=== PATIENT | male | born 1960 | race American Indian/Alaskan Native ===

== ENCOUNTER 2017-10-09 17:50 | Inpatient (IN) | payer BC, OTHER ==
[~2017-10-09] VITALS: Ht 180.3 cm; Wt 81.3 kg
[~2017-10-09 17:50] MED LIST: ADULT LOW DOSE81 MG PO; CLONAZEPAM1 MG PO; FEROSUL325 MG PO; HYDROCHLOROTH12.5 M1 PO; LOPERAMIDE2 MG PO; METOPROLOL SUCC25 MG PO; NICOTINE PATCH1 EACH TD; OMEPRAZOLE20 MG PO; PRINIVIL20 MG PO; PRINIVIL5 MG PO; VITAMIN B-1100 M1 PO; VITAMIN C500 M1 PO; VITAMIN D2000 UNI1 PO
[2017-10-09] MEDS ORDERED: MAG-OXIDE400 MG PO (18:29)
--- NOTE | 2017-10-09 21:45 | NUR ---
PATIENT RESTING IN BED, BREATHING IS EVEN AND UNLABORED. DENIES CURRENT NEEDS AT THIS TIME. ASSESSMENT DONE. CALL LIGHT WITHIN REACH.
--- NOTE | 2017-10-09 23:11 | NUR ---
PT BACK TO BED FROM THE BATHROOM. STOL SAMPLE COLLECTED AND SENT TO LAB. VS AND I&O'S TAKEN AND DOCUMENTED. WILL INFORM RN OF PT BM. PT STATES NO NEEDS AT THIS TIME. INFORMED PT TO CALL IF HE THINKS OF ANYTHING HE NEEDS. CALL LIGHT IS IN REACH.
--- NOTE | 2017-10-09 23:22 | NUR ---
PT GIVEN WARM BLANKET. PT HAS NO OTHER NEEDS AT THIS TIME. CALL LIGHT IS IN REACH.
--- NOTE | 2017-10-10 01:00 | NUR ---
PATIENT RESTING IN BED, BREATHING IS EVEN AND UNLABORED. DENIES NEEDS AT THIS TIME. ASSESSMENT DONE. CALL LIGHT WITHIN REACH.
--- NOTE | 2017-10-10 03:00 | NUR ---
PATIENT ASSISTED TO BATHROOM WITH 1PA, GAIT WEAK BUT STEADY. NOW RESTING IN BED COMFORTABLY, BREATHING IS EVEN AND UNLABORED. PATIENT DENIES FURTHER NEEDS. CALL LIGHT WITHIN REACH.
--- NOTE | 2017-10-10 04:45 | NUR ---
UPDATED DR. URRUTIA REGARDING PATIENT'S LAB VALUES, CRITICAL SODIUM VALUE OF 115, POTASSIUM OF 3.5. IV FLUIDS DC'D, X1 DOSE OF 40 MEQ PO POTASSIUM ODERED WITH 500 CC FREE WATER TO BE DRANK BEFORE NEXT LAB YOSSI.
--- NOTE | 2017-10-10 05:00 | NUR ---
PATIENT RESTING IN BED, BREATHING IS EVEN AND UNLABORED. DENIES CURRENT NEEDS. CALL LIGHT WITHIN REACH.
--- NOTE | 2017-10-10 06:30 | NUR ---
PATIENT ASSISTED TO BATHROOM WITH 1PA. GAIT APPEARS TO BE IMPROVED FROM EARLIER IN SHIFT, CONTINUES TO NEED ASSISTANCE. PATIENT NOW RESTING IN BED, BREATHING IS EVEN AND UNLABORED. DENIES FURTHER NEEDS. CALL LIGHT WITHIN REACH.
--- NOTE | 2017-10-10 08:29 | NUR ---
IV SITE INTACT, NO SWELLING OR REDNESS NOTED AT SITE, PT DENIES PAIN WITH FLUSH. ABLE TO DRAW A LAB SAMPLE OFF IV SITE. PT ASHLEY WELL. PT IS ALERT AND ORIENTED X4, COOPERATIVE. PT DENIES PAIN, NAUSEA, AND SOB AT THIS TIME. PT DECLINES SMOKING CESATION INFORMATION OR COUNSELING. PT VITALS WNL, HR STILL VARIABLE. SKIN IS INTACT. PT HAS ORDERED BREAKFAST. EARPLUGS SUPPLIED TO PT HE C/O NOT BEING ABLE TO SLEEP FROM ALL THE NOISE. WILL ATTEMPT TO MINIMIZE INTERUPTIONS, AND CLUSTER CARES. PT DECLINED AM ADL CARES THIS MORNING.
--- NOTE | 2017-10-10 09:45 | NUR ---
LINENS CHANGED, BED BATH GIVEN, BATISTA CATH CARE DONE, PT WASHED OWN FACE AND HANDS, CLEAN GOWN IN PLACE. PT ASHLEY WELL.
--- NOTE | 2017-10-10 10:05 | NUR ---
IN TO SEE PT.
--- NOTE | 2017-10-10 10:40 | NUR ---
PT UP TO BEDSIDE COMMODE.
--- NOTE | 2017-10-10 10:42 | NUR ---
PT UP OUT OF BED HEAVY ONE PERSON ASSIST TO AMBULATE TO THE BATHROOM. PT ALERT AND ORIENTED, BERNICE, HAS CALL LIGHT WITHIN REACH. PT UNSTEADY ON HIS FEET, INSTRUCTED TO NOT AMBULATE WITH OUT ASSISTANCE.
--- NOTE | 2017-10-10 10:48 | NUR ---
PT BACK TO BED FROM COMMODE.
--- NOTE | 2017-10-10 10:50 | NUR ---
PT AMBULATED TO BATHROOM WITH ONE PERSON STAND BY ASSIST, PT UNSTEADY AND REQUIRES ASSISTANCE. PT CONPLIANT WITH USING CALL LIGHT.
--- NOTE | 2017-10-10 10:55 | NUR ---
PT BACK TO BED ONE PERSON ASSIST.
--- NOTE | 2017-10-10 12:13 | NUR ---
PT SLEEPING SOUNDLY AT THIS TIME.
[2017-10-10] MEDS ORDERED: TOPROL XL50 MG PO (12:41)
--- NOTE | 2017-10-10 12:45 | NUR ---
MED REC COMPLETE
--- NOTE | 2017-10-10 13:22 | NUR ---
PT IN BED, RATHER QUIET. INTO MYSELF, PT STATED THAT HE JUST WANTED TO GET SOME SLEEP. WILL RETURN AGAIN.
--- NOTE | 2017-10-10 13:37 | NUR ---
PT UP AMBULATING TO THE TOILET WITH STAND BY ASSIST, PT REPORTS FEELING IMPROVEMENT, STATES "I THINK THE DIZZINESS IS GETTING BETTER". PT ABLE TO VOID. THEN AMBULATED BACK TO BED, PT USING CALL LIGHT APPROPRIATELY. PT DENEIS NAUSEA, PAIN, AND SOB AT THIS TIME. IV SITE INTACT, NO REDNESS OR SWELLING NOTED, FLUIDS INFUSING EASILY. PT HAS POOR PO INTAKE OF FLUIDS, EVEN TAKING HIS FLUID RESTRICTION INTO ACCOUNT. BROUGHT PT A 7-UP. PT REFUSES LUNCH AT THIS TIME.
--- NOTE | 2017-10-10 15:55 | NUR ---
PT IV SITE INTACT, NO REDENSS OR SWELLING NOTED, FLUIDS INFUSE EASILY. PT GIVEN PRN MAALOX FOR HEARTBURN. VITALS WNL AT THIS TIME.
--- NOTE | 2017-10-10 18:01 | NUR ---
PT UP AMBULATED TO BATHROOM WITH MINIMAL STAND BY ASSIST. PT ABLE TO VOID AND HAVE LIQUID BM. CHANGED ALL LINENS ON BED. PT AMBULATED BACK TO BED, USED CALL LIGHT APPROPRIATLY. NOW SITTING UP IN BED EATING DINNER. PT DENIES NAUSEA, PAIN, AND SOB AT THIS TIME.
--- NOTE | 2017-10-10 20:15 | NUR ---
ASSISTED PATIENT TO BATHROOM WITH 1PA. GAIT IS STEADY. NOW RESTING COMFORTABLY IN BED, BREATHING IS EVEN AND UNLABORED. DENIES FURTHER NEEDS. CALL LIGHT WITHIN REACH.
--- NOTE | 2017-10-10 20:59 | EKG ---
[facility] [address] [facility] [place], [place] [address] Signed Atrial fibrillation with slow ventricular response Abnormal ECG No previous ECGs available Confirmed by RITA URRUTIA MD ([id number]) on 10/10/2017 8:59:36 PM Electronically Signed By: RITA URRUTIA MD 10/10/179 PATIENT NAME: ALEJA PISANO Electrocardiogram DATE OF : 60 PHYSICIAN: RITA URRUTIA MD REPORT #: [id number] REPORT IS CONFIDENTIAL AND NOT TO BE RELEASED WITHOUT AUTHORIZATION
--- NOTE | 2017-10-10 22:30 | NUR ---
ASSISTED PATIENT TO BATHROOM WITH 1PA, GAIT STEADY. NOW RESTING IN BED COMFORTABLY, BREATHING IS EVEN AND UNLABORED. DENIES FURTHER NEEDS. CALL LIGHT WITHIN REACH.
--- NOTE | 2017-10-11 | NUR ---
PATIENT RESTING IN BED, BREATHING IS EVEN AND UNLABORED. DENIES NEEDS AT THIS TIME. ASSESSMENT DONE. CALL LIGHT WITHIN REACH.
--- NOTE | 2017-10-11 02:33 | NUR ---
ASSISTED PATIENT TO BATHROOM, 1PA. NOW RESTING COMFORTABLY IN BED AGAIN, BREATHING IS EVEN AND UNLABORED. PATIENT DENIES FURTHER NEEDS. CALL LIGHT WITHIN REACH.
--- NOTE | 2017-10-11 03:10 | NUR ---
DR. URRUTIA NOTIFIED OF SODIUM LEVEL OF 119, NO NEW ORDERS AT THIS TIME.
--- NOTE | 2017-10-11 04:30 | NUR ---
PATIENT ASSISTED TO BATHROOM WITH SBA, NOW RESTING IN BED, BREATHING IS EVEN AND UNLABORED. DENIES FURTHER NEEDS AT THIS TIME. CALL LIGHT WITHIN REACH.
--- NOTE | 2017-10-11 08:55 | NUR ---
LAB CALLED WITH A CRITICAL VALUE OF SODIUM 117, HAS BEEN NOTIFIED BY PHONE.
--- NOTE | 2017-10-11 10:58 | NUR ---
AT APPROXIMATLY 1032 PT CALLED WITH CALL LIGHT. WENT INTO ROOM PALSY/TREMORS WERE WORSENED. PT C/O OF THE INCREASED SHAKING IN HIS HEAD AND NECK, UNABLE TO CONTROL IT. TOOK A SET OF VITALS AT THIS TIME SHOWED SLIGHTLY ELEVATED TEMP OF 99.3 ALL OTHER VITALS WNL. CALLED INTO ROOM, HE EVALUATED THE PT AND ORDERED AN IMMEDIATE INFUSING OF 3% SALINE AT 100 ML OVER 10 MIN. NEW IV SITE STARTED AT THIS TIME IN LEFT ARM. AT THE COMPLETION OF FIRST 100 ML BOLUS OF 3% SALINE, ORDERED A SECOND BOLUS AT PT STILL HAS UNCONTROLED SHAKING/SIEZING ACTIVITY IN HIS HEAD AND NECK, NO OTHER PARTS OF THE BODY APPEAR TO BE INVOLVED. PT ABLE TO REMAIN ALERT AND ORIENTED, COMMUNICATES CLEARLY.
--- NOTE | 2017-10-11 11:31 | NUR ---
MOVED PT TO ROOM 128 ACROSS FROM NURSES STATION FOR CLOSER OBSERVATION DUE TO RECENT SIEZURE ACTIVITY, PT RESPONDING WELL TO TREATMENT OF 200 ML TOTAL 3% NS FLUIDS. SIEZURE ACTIVITY MOSTLY RESOLVED.
--- NOTE | 2017-10-11 12:12 | NUR ---
SIEZURE ACTIVITY HAS RESOLVED.
--- NOTE | 2017-10-11 14:00 | NUR ---
BLOOD SAMPLE EASILY OBTAINED FROM IV SITE IN RT FOREARM. SITE FLUSHES EASILY, NO SWELLING OR REDNESS NOTED, PT DENIES PAIN WITH FLUSH. PT DENIES NAUSEA, PAIN AND SOB IN GENERAL. STATES "I FEEL SO MUCH BETTER".
--- NOTE | 2017-10-11 15:50 | NUR ---
PT UP AMBULATED TO THE TOILET WITH ONLY STAND BY ASSIST. PT VOIDED, FORGOT TO USE URINAL. PT AMBULATED BACK TO BED. DENIES NAUSEA, PAIN, AND SOB AT THIS TIME. PT C/O SOME HEARTBURN MAALOX GIVEN.
--- NOTE | 2017-10-11 19:45 | NUR ---
PATIENT ASSISTED TO BATHROOM WITH SBA, GAIT STEADY. PATIENT NOW RESTING COMFORTABLY IN BED AGAIN, BREATHING IS EVEN AND UNLABORED. DENIES FURTHER NEEDS. CALL LIGHT WITHIN REACH.
--- NOTE | 2017-10-11 21:05 | NUR ---
DR. URRUTIA AWARE OF SODIUM OF 121, PATIENT TO CONTINUE 3% NORMAL SALINE AT 33 CC/HR WITH ANOTHER SODIUM LEVEL MEASUREMENT AT 0200.
--- NOTE | 2017-10-11 21:30 | NUR ---
RE-STARTED 3% NORMAL SALINE, PATIENT ASSISTED TO BATHROOM WITH SBA, GAIT STEADY. NOW RESTING COMFORTABLY IN BED, BREATHING IS EVEN AND UNLABORED. DENIES FURTHER NEEDS. CALL LIGHT WITHIN REACH.
--- NOTE | 2017-10-12 00:07 | NUR ---
PATIENT RESTING COMFORTABLY IN BED, BREATHING IS EVEN AND UNLABORED. CALL LIGHT WITHIN REACH.
--- NOTE | 2017-10-12 02:00 | NUR ---
PATIENT ASSISTED TO BATHROOM WITH SBA, GAIT STEADY. NOW RESTING COMFORTABLY IN BED, BREATHING IS EVEN AND UNLABORED. DENIES FURTHER NEEDS. DENIES ANY SEIZURE ACTIVITY THIS SHIFT. CALL LIGHT WITHIN REACH.
--- NOTE | 2017-10-12 02:56 | NUR ---
CALLED AND UPDATED DR. URRUTIA OF PT'S RECENT LABS. SODIUM:123, ORDERS RECEIVED TO DECREASE 3% SALINE TO 10ML/HR. ASKED ABOUT STOP TIME PER TELE-PHARMACY, HOWEVER SINCE MD IS CLOSELY MONITORING LABS, NO STOP TIME ADDED AT THIS TIME. RATE CHANGED AT THIS TIME, PT APPEARS TO BE SLEEPING, NO APPARENT DISTRESS.
--- NOTE | 2017-10-12 08:01 | NUR ---
PT AWAKE AND ALERT X4. DENIES PAIN, NAUSEA, AND SOB. PT ALSO DENIES ANY SIEZURE LIKE ACTIVITY. PT UP AMBULATED TO TOILET WITH STAND BY ASSIST ONLY.
--- NOTE | 2017-10-12 11:24 | NUR ---
PT ASSSITED TO BATHROOM TO SHOWER. PT SHOWERED INDEPENDENTLY. BED LINEN CHANGED. PT BACK IN BED AND COMFORTABLE. CALL LIGHT IN REACH.
--- NOTE | 2017-10-12 11:30 | NUR ---
PT BACK TO BED FROM SHOWER, PT DENIES PAIN, NAUSEA, AND SOB. IV SITES INTACT, FLUSH EASILY, PT DENIES PAIN AT SITES. PT DENIES DESIRE FOR LUNCH.
--- NOTE | 2017-10-12 17:20 | NUR ---
PT RESTING QUIETLY IN BED AFTER AMBULATING TO TOILET AND BACK WITH MINIMAL STANDBY ASSIST. PT DENIES NAUSEA, PAIN, AND SOB, ALSO DENEIS ANY RENEWAL OF SIEZURE LIKE ACTIVITY. PT ABLE TO EAT 1/2 SANDWICH. TAKES PILLS EASILY. PT APPEARS TO BE IN BETTER SPIRITS. AND GRANDDAUGHTER AT THE BEDSIDE. IV SITES INTACT, NO REDNESS OR SWELLING, PT DENIES PAIN AT IV SITES.
--- NOTE | 2017-10-12 19:20 | NUR ---
PT HAS SLOWLY IMPROVED OVER THE SHIFT. PT HAD A SHOWER TODAY, AMBULATED IN THE JUNIOR TO ROOM 118 AND BACK FOR HIS SHOWER, HR INCREASES WITH ACTIVITY. PT HAS DENIED PAIN, NAUSEA, AND SOB ALL DAY. LINENS ON BED CHANGED. PT ABLE TO ASHLEY SMALL PORTIONS OF REG DIET FOR BREAKFAST AND DINNER, REFUSED LUNCH. PT COOPERATIVE AND POLITE ALL SHIFT, ALERT AND ORIENTED ALL SHIFT. PT USES CALL LIGHT APPROPRIATLY, DENIES ANY RENEWED SIEZURE ACTIVITY ALL SHIFT.
--- NOTE | 2017-10-12 20:00 | NUR ---
PATIENT ASSISTED TO BATHROOM. NOW RESTING IN BED AGAIN, BREATHING IS EVEN AND UNLABORED. DENIES FURTHER NEEDS. CALL LIGHT WITHIN REACH.
--- NOTE | 2017-10-12 22:00 | NUR ---
ASSISTED PATIENT TO BATHROOM. NOW RESTING COMFORTABLY IN BED, BREATHING IS EVEN AND UNLABORED. DENIES FURTHER NEEDS. CALL LIGHT WITHIN REACH.
--- NOTE | 2017-10-13 | NUR ---
ASSISTED PATIENT TO BATHROOM. NOW RESTING COMFORTABLY IN BED, BREATHING IS EVEN AND UNLABORED. NO NEEDS AT THIS TIME. CALL LIGHT WITHIN REACH.
--- NOTE | 2017-10-13 04:43 | NUR ---
ASSISTED PATIENT TO BATHROOM, SBA, GAIT STEADY. NOW RESTING COMFORTABLY IN BED, BREATHING IS EVEN AND UNLABORED. DENIES FURTHER NEEDS. CALL LIGHT WITHIN REACH.
--- NOTE | 2017-10-13 07:30 | NUR ---
PT SHIFT REPORT RECEIVED FROM DAY SHIFT RN. PT IS RESTING IN BED AT THIS TIME AND CALLS APPROPRIATELY. PT HAS FALT AFFECT NOTED. WILL CONTINIUE TO CLOSELY MONITOR.
--- NOTE | 2017-10-13 09:00 | NUR ---
PT SHIFT ASSESSMENT COMPLETED. PT BREATH SOUNDS CLEAR AND UNLABORED. PT IS ALERT AND ORIENTED X4. PT UP TO BATHROOM AND TOLERATED WELL. PT ABLE TO WALK ON HIS OWN WITH NO ISSUES. MD WILL BE IN SHORTLY TO SEE PT.
[2017-10-13] MEDS ORDERED: CIPROFLOXACIN500 MG PO (09:40)
[2017-10-13] MEDS ORDERED: METRONIDAZOLE250 MG PO (09:41)
[2017-10-13] MEDS ORDERED: METOPROLOL TART25 MG PO (09:41)
--- NOTE | 2017-10-13 10:30 | NUR ---
PT PER MD DISCHARGE PT TO HOME. PT IS AGREEABLE TO THIS PLAN. DISCHAREG PAPER WORK PREPARED. NEW MEDICATIONS SENT TO HIS PHARMACY. OUR PHARMACY WILL BE IN TO DISCUSS MEDICATIONS ONCE PTS IS AT THE BEDSIDE TO REVIEW NEW ORDERS. WILL CONTINUE TO CLOSELY MONITOR.
--- NOTE | 2017-10-13 11:32 | NUR ---
PT DENIES WANTING TO WALK THE HALLS BUT STOOD IN HIS ROOM AND WALKED AOUND FOR APROX 5 MINNUTES. PT TOELRATED WELL. PT DENIES DIZINESS AND SOB. WILL CONTINUE TO CLOSELY MONITOR.
--- NOTE | 2017-10-13 12:00 | NUR ---
PT LIBBY ARRIVED. EDUCATION PROVIDED TO PT AND HIS . UPDATED ABOUT MEDICATION CHANGES AND WHEN TO TAKE NEXT DOSE OF MEDICATIONS. PHARMACY ALSO IN TO REVIEW MEDICATIONS AND SIDE EFFECTS. PT TOLERATED WELL. ALL QUESTIONS ANSWERED. DISCHARGE PAPERWORK REVIEWED AND SENT WITH PTS .
--- NOTE | 2017-10-13 12:15 | NUR ---
PT LEFT WITH PROFESSOR OF FINE ARTTri NUGENT IN WHEELCHAIR. ALL BELONGINGS WITH PT . PT REMAINS STABLE AND ABLE TO ANSWER ALL QUESTIONS. EDUCATED TO RETURN IF WORSENING OF SYMPTOMS. EDUCATED TO FOLLOWUP WITH HIS PCP IN 1 WEEK.
== END 2017-10-13 12:25 | disposition home or self-care (01) | DRG 392 ==
LOC: ED 17:50 → CCU 20:34
PROVIDERS: ADMIT Internal Medicine
DX: K52.89 Other specified noninfective gastroenteritis and colitis (principal); E87.1 Hypo-osmolality and hyponatremia; K70.10 Alcoholic hepatitis without ascites; I48.91 Unspecified atrial fibrillation; I10 Essential (primary) hypertension; K21.9 Gastro-esophageal reflux disease without esophagitis; F10.11 Alcohol abuse, in remission; F41.9 Anxiety disorder, unspecified
CPT/HCPCS: 36415; 80048; 80053; 80076; 81001; 83735; 83930; 83935; 84550; 85025; 85610; 86704; 86706; 86709; 86803; 87045; 87046; 87177; 87205; 87209; 87340; 87493; 93005; 93010; 99285; G0480; J0744; J1650; J7030

== ENCOUNTER 2017-11-04 12:09 | Emergency (ER) | payer OTHER ==
[~2017-11-04] VITALS: Ht 180.3 cm; Wt 81.3 kg
[~2017-11-04 12:09] MED LIST changes: +CIPROFLOXACIN500 MG PO; +MAG-OXIDE400 MG PO; +METOPROLOL TART25 MG PO; +METRONIDAZOLE250 MG PO; +TOPROL XL50 MG PO
[2017-11-04] MEDS ORDERED: ONDANSETRON ODT8 MG PO (16:38)
== END 2017-11-04 16:48 | disposition home or self-care (01) ==
LOC: ED 12:09
DX: K29.00 Acute gastritis without bleeding (principal); I10 Essential (primary) hypertension; F41.9 Anxiety disorder, unspecified; F17.200 Nicotine dependence, unspecified, uncomplicated; Z88.0 Allergy status to penicillin; Z79.899 Other long term (current) drug therapy
CPT/HCPCS: 80053; 81001; 83690; 85025; 96361; 96374; 99284; J2405; J7030